=== PATIENT | female | born 1935 | race Caucasian/White ===

== ENCOUNTER → 2019-09-26 | Outpatient (CLI) | payer MEDICARE, OTHER ==
--- NOTE | 2019-09-26 12:26 | RAD ---
EXAM: DUAL ENERGY X-RAY ABSORPTIOMETRY (DEXA). HISTORY: Postmenopausal screening. FINDINGS: The lowest measured T-score is -2.0 in the distal radius, based on a bone mineral density of 0.304 g/cm^2. Refer to the worksheets for full detail. No comparison examinations are available. IMPRESSION: Low bone mass. Bone mineral density yields a T-score between -1.0 and -2.5. Fracture risk is increased. FRAX was not calculated. METHODOLOGY: Dual energy x-ray absorptiometry was performed to measure bone mineral density. The following analysis is based on the 2019 Official Positions of the International Society for Clinical Densitometry: Measurements of the hips and the average of L1-L4 are preferred. When the spine and/or hip cannot be feasibly measured or interpreted, or in the setting of hyperparathyroidism, distal radial bone mineral density may be measured. The lumbar spine T-score is based on the average bone mineral density of L1-L4. In the setting of artifact or anatomic abnormality, some lumbar levels may be excluded, and the remaining levels used for calculation. A single lumbar level is not used for diagnosis, and if only a single level is available for assessment, another anatomic site will be used to assign a diagnosis. The hip T-score is based on the bone mineral density measurement of the femoral neck or total proximal femur of either side, whichever is lowest. Bilateral mean values are not used for diagnosis. The forearm T-score is derived from 33% of the distal radius of the nondominant forearm. For postmenopausal and perimenopausal women, and men age 50 or older, of all ethnic groups, T-scores are calculated through comparison of the current measurement with the NHANES III database standard for females aged 20-29 years. The lowest T-score of the evaluated anatomic sites is used to assign a diagnosis based on the World Health Organization densitometric classification. In premenopausal females and males younger than age 50, a Z-score is calculated based on population specific reference data for patient sex and self-reported ethnicity. Electronically signed by: Lanre Costa MD (09/26/2019 12:23 PM) [id number]
== END | disposition home or self-care (01) ==
LOC: DXRAD 11:29
PROVIDERS: ATTEND Family Medicine
DX: M81.0 Age-related osteoporosis without current pathological fracture (principal)
CPT/HCPCS: 77080; 77081

== ENCOUNTER 2021-03-02 06:47 | Emergency (ER) | payer MEDICARE, OTHER ==
[~2021-03-02] VITALS: Ht 162.6 cm; Wt 59.0 kg
--- NOTE | 2021-03-02 07:09 | RAD ---
CT head without contrast PQRS statement: CT scans at this facility use dose reduction including either automated exposure cont rol, iterative reconstructions, and /or weight based radiation dosing via mA and kV modification when appropriate to reduce radiation dose to as low as reasonably achievable. HISTORY: Code stroke. FINDINGS: Mild generalized brain atrophy. No intracranial hemorrhage, mass, hydrocephalus, extra-axia l fluid collections or infarction. Orbits, mastoids and bones are unremarkable. IMPRESSION: No acute abnormality. FOR INTERNAL CODING PURPOSES Critical result: Findings discussed with Dr. Valeria Shea at 03/02/2021 7:03 AM. RESULT CODE: (C) Electronically signed by: Felix Mcdonald MD (03/02/2021 7:06 AM) [facility]
[2021-03-02] MEDS ORDERED: IV NORMAL SALINE 1,000ML 1,000 ML IV ONE ×2 (07:15→08:00)
--- NOTE | 2021-03-02 07:18 | PHYS DOC ---
General Adult EDM: Chief Complaint: ALTERED MENTAL STATUS HPI: HPI: 85 yo F PMH HTN and constipation [place] the ed [place]/[facility] with concern for abnormal speech, last known well was at 9 PM yesterday. Due to pts' inappropriate speech, unable to obtain hx and ros. [place] papers reviewed by myself-pt is a DNR. Review of Systems: Review of Systems: ROS unobtainable Current Medications: Current Meds: Current Medications Medications (Trade) Dose Ordered Sig/Jim Start Time Stop Time Status Last Admin Dose Admin Sodium Chloride 1,000 ml @ 1,000 mls/hr 1X ONCE 03/02/21 07:15 03/02/21 08:14 UNV Physical Exam: PE: Constitutional: appears uncomfortable/in pain, non-toxic appearance. HENT: Normocephalic, atraumatic, dentures in place, dry mucous membranes Eyes: EOMI, conjunctiva normal, no discharge, no scleral icterus Neck: Normal range of motion, supple, Cardiovascular: S1/2 present, tachycardic Lungs & Thorax: Speaking in full sentences, bilateral equal chest rise, no tachypnea or increased work of breathing Abdomen: soft, no tenderness, Skin: Warm, dry, no erythema, no rash, no jaundice Extremities: No tenderness, no cyanosis, both legs drop to bed, moving both arms Neurologic: Alert, inappropriate speech/responses-no aphasia Psychologic: Affect normal, calm mood : indwelling doe with scant yellow urine EKG: EKG: Sinus tachycardia 144 bpm, no axis deviation, QTC 506, no T wave inversion, no ST elevation or ST depression Radiology/Procedures: Radiology/Procedures: IMAGING REPORT Signed PATIENT: ERASTO RODRIGUEZ ACCOUNT: [id number] : 1935 LOCATION: ER AGE: 85 SEX: F EXAM STATUS: PRE ER ORD. PHYSICIAN: VALERIA SHARPE DO REASON: STROKE PROCEDURE: CT CODE STROKE HEAD WO CT head without contrast PQRS statement: CT scans at this facility use dose reduction including either au tomated exposure control, iterative reconstructions, and /or weight based radiation dosing via mA and kV modification when appropriate to reduce radiation dose to as low as reasonably achievable. HISTORY: Code stroke. FINDINGS: Mild generalized brain atrophy. No intracranial hemorrhage, mass, hydrocephalus, extra-axial fluid collections or infarction. Orbits, mastoids and bones are unremarkable. IMPRESSION: No acute abnormality. FOR INTERNAL CODING PURPOSES Critical result: Findings discussed with Dr. Valeria Sharpe at 03/02/2021 7:03 AM. RESULT CODE: (C) Electronically signed by: Oumar Mcdonald MD (03/02/2021 7:06 AM) [facility] DICTATED AND SIGNED BY: OUMAR MCDONALD MD DATE: 03/02/21701 CC: ISAI CAPONE MD; VALERIA SHARPE DO ~MTH0 0 IMAGING REPORT Signed PATIENT: ERASTO RODRIGUEZ ACCOUNT: [id number] : 1935 LOCATION: ER AGE: 85 SEX: F EXAM STATUS: REG ER ORD. PHYSICIAN: VALERIA SHARPE DO REASON: aphasia PROCEDURE: PORTABLE CHEST 1V EXAM: CHEST ONE VIEW. HISTORY: Aphasia, cerebrovascular accident. COMPARISON: None. FINDINGS: A frontal view of the chest is obtained. There are no confluent infiltrates. There is no pneumothorax or pleural effusion. The heart is not enlarged. There are atherosclerotic calcifications of the aorta. IMPRESSION: 1. No confluent infiltrates. Electronically signed by: Lanre Costa MD (03/02/2021 8:22 AM) [id number] DICTATED AND SIGNED BY: PORSHA COSTA MD DATE: 03/02/21819 CC: ISAI CAPONE MD; VALERIA SHARPE DO ~MTH0 0 Heart Score: C/O Chest Pain: No Risk Factors: Risk Factors: DM, Current or recent (<one month) smoker, HTN, HLP, family history of CAD, obesity. Risk Scores: Score 0 - 3: 2.5% MACE over next 6 weeks - Discharge Home Score 4 - 6: 20.3% MACE over next 6 weeks - Admit for Clinical Observation Score 7 - 10: 72.7% MACE over next 6 weeks - Early Invasive Strategies Course & Med Decision Making: Course & Med Decision Making Pertinent Labs and Imaging studies reviewed. (See chart for details) Concern for altered mental status, cannot exclude ischemic or large vessel occlusion stroke, NSTEMI, renal insufficiency, elevated liver enzymes concern for sepsis from indwelling Doe catheter. Both patient's DPOA are present in the emergency department. Patient was recently discharged from [facility]. Was admitted for metastatic pancreatic cancer with 2 stents placed. Patient is being placed on hospice care and is a DNR. DPOA is requesting no aggressive management-declined transfer to higher level of care hospital ([facility] or [facility]) for interventional cardiology and oncology. Agrees with plan for antibiotics to cover for sepsis and analgesia for comfort (mets to liver and bone, unsure if brain mets). Does not want NSTEMI or acute encephalopathy/cva/mri aggressively managed. Aware pt has no hemorrhagic stroke-but cannot exclude ischemic or large vessel occlusion. 20-gauge IV unable to be placed due to dehydration/poor IV access. DPOAs okay with transfer back to facility for hospice/palliative/comfort care. Will discharge home with strict ED return precautions were given for fever. Encouraged urgent outpatient follow-up with PMD for end-of-life care. All patient's/dpoas' questions were answered and pt was stable at time of discharge. I have spoken with the patient and/or caregivers. I explained the patient's condition, diagnoses and treatment plan based on the information available to me at this time. I have answered the patient and/or caregiver's questions and addressed any concerns. The patient and/or caregivers have a good understanding of patient's diagnosis, condition and treatment plan as can be expected at this point. Vital signs have been stable. Patient's condition is stable and appropriate for discharge from the emergency department. Patient will pursue further outpatient evaluation with primary care physician or other designated or consulting physician as outlined in the discharge instructions. The patient and/or caregivers are agreeable to this plan of care and follow-up instructions have been explained in detail. The patient and/or caregivers have received these instructions in written form and have expressed an understanding of the discharge instructions. The patient and/or caregivers are aware that any significant change of condition or worsening of symptoms should prompt immediate return to this or the closest emergency department or call to 911. Vishal Disclaimer: Vishal Disclaimer: This electronic medical record was generated, in whole or in part, using a voice recognition dictation system. Departure Departure: Impression: Primary Impression: AMS (altered mental status) Additional Impressions: NSTEMI (non-ST elevated myocardial infarction) Sepsis Renal insufficiency Disposition: 01 HOME / SELF CARE / HOMELESS Condition: CRITICAL Referrals: ISAI CAPONE MD (PCP) Patient Instructions: Altered Mental Status, Cardiac-Specific Troponin I and T, Kidney Failure, Sepsis, Adult Additional Instructions: EMERGENCY DEPARTMENT GENERAL DISCHARGE INSTRUCTIONS Thank you for coming to [facility] (ED) today and trusting us with you care. We trust that you had a positivie experience in our Emergency Department. If you wish to speak to the department management, you may call the director at [phone]. YOUR FOLLOW UP INSTRUCTIONS ARE FOLLOWS: 1. Do you have a private Doctor? If you do not have a private doctor, please ask for a resource list of physicians or clinics that may be able to assist you with follow up care. 2. The Emergency Physician has interpreted your x-rays. The X-Ray specialist will also review them. If there is a change in the findings, you will be notified in 48 hours when at all possible. 3. A lab test or culture has been done, your results will be reviewed and you will be notified if you need a change in treatment. ADDITIONAL INSTRUCTIONS AND INFORMATION: 1. Your care today has been supervised by a physician who is specially trained in emergency care. Many problems require more than one evaluation for a complete diagnosis and treatment. We recommend that you schedule your follow up appointment as recommended to ensure complete treatment of you illness or injury. If you are unable to obtain follow up care and continue to have a problem, or if your condition worsens, we recommend that you return to the ED. 2. We are not able to safely determine your condition over the phone nor are we able to give sound medical advice over the phone. For these safety reasons, if you call for medical advice we will ask you to come to the ED for further evaluation. 3. If you have any questions regarding these discharge instructions please call the ED at [phone]. SAFETY INFORMATION: In the interest of safety, wellness, and injury prevention; we encourage you to wear your sealbelt, if you smoke; quite smoking, and we encourage family to use a protective helmet for bicycling and other sporting events that present an increased risk for head injury. IF YOUR SYMPTOMS WORSEN OR NEW SYMPTOMS DEVELOP, OR YOU HAVE CONCERNS ABOUT YOUR CONDITION; OR IF YOUR CONDITION WORSENS WHILE YOU ARE WAITING FOR YOUR FOLLOW UP APPOINTMENT; EITHER CONTACT YOUR PRIMARY CARE DOCTOR, THE PHYSICIAN WHOSE NAME AND NUMBER YOU WERE GIVEN, OR RETURN TO THE ED IMMEDIATELY. Scripts Fosfomycin Tromethamine (Fosfomycin Tromethamine) 3 Gm Packet 3 GM PO 1X for uti, #2 PKT 1 Refill may repeat in 1 week Prov: VALERIA SHARPE DO 03/02/21 VALERIA SHARPE DO Mar 02, 2021 07:18
--- NOTE | 2021-03-02 07:31 | EKG ---
[address] [address] Test Date: 2021-03-02 Test Time: 07:24:50 Pat Name: ERASTO RODRIGUEZ Department: Room: Gender: F Base Loader: ALBERT : 1935 Requested By: JACQUES SHARPE Order Number: [id number] Reading MD: Ubaldo Cid MD Measurements Intervals [place] Rate: 144 P: VA: QRS: 47 QRSD: 68 T: 69 QT: 324 QTc: 506 Interpretive Statements SUPRAVENTRICULAR TACHYCARDIA Electronically Signed On 03-02-2021 9:17:32 [employer]M OPERATOR by Ubaldo Cid MD
[2021-03-02] MEDS ORDERED: IOHEXOL 350 MG/ML 100 ML VIAL. IV ONE (08:15)
--- NOTE | 2021-03-02 08:24 | RAD ---
EXAM: CHEST ONE VIEW. HISTORY: Aphasia, cerebrovascular accident. COMPARISON: None. FINDINGS: A frontal view of the chest is obtained. There are no confluent infiltrates. There is no pneumothorax or pleural effusion. The heart is not en larged. There are atherosclerotic calcifications of the aorta. IMPRESSION: 1. No confluent infiltrates. Electronically signed by: Lanre Costa MD (03/02/2021 8:22 AM) [id number]
[2021-03-02 08:30] LABS: CALCIUM 8.1 mg/dL (8.5-10.1); CREATININE 1.9 mg/dL (0.6-1.0); GFR 25.1; POTASSIUM 4.6 mmol/L (3.5-5.1)
[2021-03-02 08:36] LABS: ALBUMIN 1.7 g/dL (3.4-5.0); ALBUMIN/GLOBULIN RATIO 0.6 (1.0-1.7); TOTAL BILIRUBIN 2.4 mg/dL (0.2-1.0); TOTAL PROTEIN 4.4 g/dL (6.4-8.2)
[2021-03-02] MEDS ORDERED: VANCOMYCIN PER PHARMACY MC PRN (09:00)
[2021-03-02] MEDS ORDERED: CONTRAST GIVEN. MC PRN (09:15)
[2021-03-02] MEDS ORDERED: PIPERACILLIN/TAZOBACTAM 4.5 GM in IV NORMAL SALINE 50ML 50 ML IV ONE (09:15)
[2021-03-02 09:29] LABS: BASO % 0 % (0-3); EOS # 0.1 x10^3/uL (0.0-0.7); EOS % 0 % (0-3); HEMATOCRIT 38.4 % (36.0-47.0); HEMOGLOBIN 12.5 g/dL (12.0-15.5); LYMPH # 0.8 x10^3/uL (1.0-4.8); LYMPH % 2 % (24-48); MEAN CORPUSCULAR HEMOGLOBIN 32 pg (25-35); MEAN CORPUSCULAR HGB CONC 33 g/dL (31-37); MEAN CORPUSCULAR VOLUME 98 fL (79-100); MONO # 0.4 x10^3/uL (0.0-1.1); MONO % 1 % (0-9); NEUT # 34.5 x10^3uL (1.8-7.7); NEUT % 97 % (31-73); PLATELET COUNT 185 x10^3/uL (140-400); RED BLOOD COUNT 3.92 x10^6/uL (3.50-5.40); WHITE BLOOD COUNT 35.7 x10^3/uL (4.0-11.0)
[2021-03-02] MEDS ORDERED: VANCOMYCIN 1.5 GM in IV NORMAL SALINE 500ML 500 ML IV ONE (09:30)
[2021-03-02] MEDS ORDERED: FOSF3PAC PO (09:53)
[2021-03-02 10:00] VITALS: BP 94/55
[2021-03-02] MEDS ORDERED: cefTRIAXone SODIUM 1 GM VIAL ONE (10:11)
[2021-03-02] MEDS ORDERED: IV NORMAL SALINE 50ML 50 ML ONE (10:11)
[2021-03-02] MEDS ORDERED: HYDROmorphone PF 1 MG/ML DISP.SYRIN IVP ONE (10:15)
[2021-03-02] MEDS ORDERED: ONDANSETRON PF 4 MG/2 ML VIAL. ONE (10:33)
[2021-03-02 15:08] LABS: % BANDS 21 % (0-9); % LYMPHS 9 % (24-48); % MONOS 1 % (0-10); % SEGS 69 % (35-66); PLT ESTIMATE ADEQUATE (ADEQUATE)
== END 2021-03-02 11:22 | disposition home or self-care (01) ==
LOC: ER 06:47
DX: I21.4 Non-ST elevation (NSTEMI) myocardial infarction (principal); A41.9 Sepsis, unspecified organism; N28.9 Disorder of kidney and ureter, unspecified; I10 Essential (primary) hypertension
CPT/HCPCS: 36415; 70450; 71045; 80053; 82550; 83605; 84484; 85007; 85025; 85610; 85730; 93005; 96361; 96365; 96375; 99285; J0696; J1170; J7030